=== PATIENT | female | born 1970 | race Caucasian/White ===

== ENCOUNTER 2016-05-04 05:02 | Day surgery (SDC) | payer BC ==
[2016-04-28 15:29] VITALS: BMI 34.7
[~2016-05-04 05:02] MED LIST: BUPIVACAINE HCL/PF 0.5% (5MG/ML) 10 ML VIAL IJ ONE; LIDOCAINE 1%/EPI 1:100000 (50 ML MULTI DOSE VIAL) INF ONE
[2016-05-04] MEDS ORDERED: BUPIVACAINE HCL/PF 0.5% (5MG/ML) 10 ML VIAL ONE (07:11)
[2016-05-04] MEDS ORDERED: LIDOCAINE 1%/EPI 1:100000 (50 ML MULTI DOSE VIAL) ONE (07:11)
--- NOTE | 2016-05-04 08:52 | HP ---
Satellite [facility] - Chief Complaint Chief Complaint: right knee pain - Past Medical History Allergies/Adverse Reactions: Allergies Allergy/AdvReac Type Severity Reaction Status Date / Time No Known Allergies Allergy Verified 05/04/16 08:15 ...LMP: 04/04/16 - Current Medications Current Medications: Medication Instructions Recorded Oxycodone HCl/Acetaminophen 1 - 2 tab PO Q6H #50 tab MDD 8 05/04/16 [Percocet 5-325 mg Tablet -] Satellite Physical Exam - Physical Examination Vital Signs: Vital Signs Period Temp Pulse Resp BP Sys/Begum Pulse Ox Last 24 Hr 98.0 F 73 20 119/68 96 General Appearance: Well Nourished, Well Developed, Alert & Oriented x3 ENT: Clear Lung: Normal air movement Heart: Regular rate & rhythm Extremities: Other (right knee- + swelling, + ttp, dec rom, + mcmurrays, nvi MRI +mmt) Neurological: Intact, Alert, Oriented Satellite Impression/Plan - Impression/Plan Impression: right knee internal derangement Operative Procedure: right knee arthroscopy Date to be Performed: 05/04/16
[2016-05-04] MEDS ORDERED: MIDAZOLAM HCL 2 MG/2 ML SINGLE DOSE VIAL ONE (09:00)
[2016-05-04] MEDS ORDERED: PROPOFOL 20 ML ONE (09:00)
[2016-05-04] MEDS ORDERED: ONDANSETRON 4 MG/2 ML VIAL IVPUSH PRN (09:06)
[2016-05-04] MEDS ORDERED: oxyCODONE HCL 5 MG TABLET PO PRN (09:06)
[2016-05-04] MEDS ORDERED: LIDOCAINE HCL/PF 2% SDV 5ML VIAL ONE (09:11)
[2016-05-04] MEDS ORDERED: LACTATED RINGERS SOLUTION 1,000 ML IV SCH (09:15)
[2016-05-04] MEDS ORDERED: BUPIVACAINE HCL/PF 0.5% (5MG/ML) 10 ML VIAL IJ ONE (09:24)
[2016-05-04] MEDS ORDERED: LIDOCAINE 1%/EPI 1:100000 (50 ML MULTI DOSE VIAL) INF ONE (09:24)
[2016-05-04] MEDS ORDERED: DEXAMETHASONE SOD PHOSPHATE 4 MG/1 ML VIAL ONE (09:25)
[2016-05-04] MEDS ORDERED: KETOROLAC TROMETHAMINE 30 MG/1 ML VIAL ONE (09:25)
[2016-05-04] MEDS ORDERED: ceFAZolin SODIUM 1 GM VIAL ONE (09:38)
[2016-05-04] MEDS ORDERED: ceFAZolin SODIUM 1 GM VIAL IVPB ONE ×2 (09:38→09:39)
--- NOTE | 2016-05-04 09:45 | OP ---
Operative Note - Note: Operative Date: 05/04/16 ([facility]) Pre-Operative Diagnosis: right knee internal derangement Operation: right knee arthroscopy with lateral release, debridement chondroplasty patella and trochlea Post-Operative Diagnosis: Same as Pre-op Surgeon: Humberto Munoz Registered Health Nurse: Parker Lares Anesthesiologist/STRING STUDIES DIRECTOR: Sushma Cazares Anesthesia: General, Local Specimens Removed: shavings Estimated Blood Loss (mls): 5 Operative Report Dictated: Yes
[2016-05-04] MEDS ORDERED: oxyCODONE HCL 5 MG TABLET ONE (11:03)
--- NOTE | 2016-05-04 11:11 | OP ---
DATE OF OPERATION: 05/04/2016 PREOPERATIVE DIAGNOSIS: Internal derangement, right knee. POSTOPERATIVE DIAGNOSIS: Internal derangement, right knee. PROCEDURE: Arthroscopy, right knee, with chondroplasty of the patella and lateral release. SURGICAL ATTENDING: Humberto Munoz MD ORE SMELTER: Parker Lares MD ANESTHESIA: LMA. CLOSURE: 4-0 nylon. COMPLICATIONS: None. CONDITION: To recovery room in stable condition. DESCRIPTION OF OPERATIVE PROCEDURE: Patient was taken to the operating room on May 04, 2016. General anesthesia with LMA was administered by the anesthesiologist. Right lower extremity was prepped and draped in the usual sterile fashion. Superolateral, mediolateral, infrapatellar portal sites were infiltrated with 1% Xylocaine with epinephrine. Superolateral portal was made with a 15-blade followed by blunt trocar. The knee was aspirated, which revealed about 30 mL of clear fluid. It was then inflated with cocktail 10 mL of 1% Xylocaine, 10 mL of 0.5% Marcaine, 20 mL of arthroscopic saline. The medial and lateral infrapatellar portals were then made with the 15-blade followed by the blunt trocar. The scope was placed in the lateral infrapatellar portal and up into suprapatellar pouch. Pouch was noted to be clean. The medial and lateral gutters were visualized to be clean. The undersurface of the patella was found to have some significant changes in the lateral facet. This was debrided back to smooth and stable articular cartilage using the shaver. However, it was found to be very tight laterally. Therefore, a lateral release was performed arthroscopically using the ArthroCare wand from superior aspect of the patella down towards the joint line, and the patella was seen to snap anteriorly and gap opened at the site confirming the tightness in this region, as well. The pressure was allowed to decrease to coagulate any bleeders in this region of the lateral release. Ancef was given at this part of the case, as well. With valgus stress on the knee, the medial compartment was entered. The medial meniscus was visualized, probed, and found to be intact. The medial femoral condyle was run and found to be intact as was the medial tibial plateau. At 90 degrees, the ACL was visualized, probed, and found to be intact. In the figure 4 position, lateral compartment was entered. The lateral meniscus was visualized, probed, and found to be intact. The lateral femoral condyle was run and found to be intact, as was the lateral tibial plateau. The knee was irrigated with copious amounts of irrigation. The portals were closed using 4-0 nylon. Prior to closure, 20 mL of 0.5% Marcaine was infused into the knee for postoperative analgesia. Sterile pressure dressing was placed over the knee. Patient awakened from anesthesia and transferred to recovery in stable condition. No complications. Estimated blood loss negligible. Deloris [id number]
[2016-05-04 11:20] VITALS: TEMP 98
[2016-05-04 12:44] VITALS: BP 109/60; PULSE 69
--- NOTE | 2016-05-06 12:50 | PATH ---
Surgical Pathology Report Patient Name: JANNET HOOKS [facility]. Rec. #: [id number] /Age/Gender: 1970 (Age: 45) / F Account: [id number] Location: [facility] SURGICAL Taken: 05/04/2016 Received: 05/04/2016 Reported: 05/06/2016 Physicians: Humberto Munoz M.D. Specimen(s) Received RIGHT KNEE SHAVINGS Clinical History Right knee internal derangement Final Diagnosis SOFT TISSUE, RIGHT KNEE, ARTHROSCOPIC SHAVINGS: SYNOVIUM WITH MILD CHRONIC INFLAMMATION; FIBROCARTILAGE WITH MYXOHYALINE DEGENERATION. Electronically Signed Ravindra Rollins M.D. Gross Description Received in formalin, labeled "right knee shavings" is a 4.0 x 3.2 x 0.4 cm aggregate of hernandez-yellow soft tissue fragments. A malt liquors sales representative portion is submitted in one cassette. /05/04/201605/04/2016
== END 2016-05-04 12:44 | disposition home or self-care (01) ==
LOC: JASU-SURG 05:02
PROVIDERS: ATTEND Orthopaedic Surgery
PROC: 0MNN4ZZ Release Right Knee Bursa and Ligament, Percutaneous Endoscopic Approach (ICD-10-PCS; 2016-05-04)
PROC: 0SBC4ZZ Excision of Right Knee Joint, Percutaneous Endoscopic Approach (ICD-10-PCS; principal; 2016-05-04 08:45)
DX: M23.91 Unspecified internal derangement of right knee (principal)
CPT/HCPCS: 84703; 88304-TC; 94760